=== PATIENT | female | born 1965 | race Caucasian/White ===

== ENCOUNTER 2018-09-17 15:51 | Emergency (ER) | payer BC, SELFPAY ==
[2018-09-17] MEDS ORDERED: Adacel (T-DAP) 0.5 ML SYRINGE ONE (17:19)
--- NOTE | 2018-09-17 17:44 | RAD ---
LEFT ELBOW FOUR VIEWS: 09/17/18 HISTORY: Injury, left elbow pain. FINDINGS/IMPRESSION: No acute fracture or dislocation is seen. Degenerative changes are present. POS: [id number]
== END 2018-09-17 17:53 | disposition home or self-care (01) ==
LOC: ERS 15:51
DX: S51.012A Laceration without foreign body of left elbow, initial encounter (principal); Z71.6 Tobacco abuse counseling; F17.210 Nicotine dependence, cigarettes, uncomplicated; V43.52XA Car driver injured in collision with other type car in traffic accident, initial encounter
CPT/HCPCS: 90471; 90715; 99406

== ENCOUNTER 2020-04-26 03:07 | Inpatient (IN) | payer BC, OTHER, SELFPAY ==
[2020-04-26] MEDS ORDERED: Iopamidol-370 76% 500 ML 1 ML ONE (12:09)
[2020-04-26] MEDS ORDERED: Ondansetron PF 4 MG/2 ML Vial IVP PRN (14:16)
[2020-04-26] MEDS ORDERED: cefTRIAXone\\ROCEPHIN 1 GM in Sodium Chloride 0.9% 100 ML IVPB SCH (15:00)
[2020-04-26 15:20] LABS: SARS-CoV-2 NAA Rapid Test DETECTED (NotDetected)
[2020-04-26] MEDS ORDERED: Azithromycin 500 MG in Sodium Chloride 0.9% 250 ML 250 ML IVPB SCH (16:00)
[2020-04-26] MEDS ORDERED: Succinylcholine 200 MG/10 ml SYRINGE FS ONE (16:44)
[2020-04-26 19:10] LABS: Troponin I 0.061 ng/mL (< 0.028)
[2020-04-26] MEDS ORDERED: Pharmacy to Dose REMDESIVIR IVPB PRN (19:12)
[2020-04-26 19:14] LABS: ALT (SGPT) 27 U/L (8-55); AST (SGOT) 70 U/L (5-34); Albumin 3.3 g/dL (3.5-5.0); Alkaline Phosphatase 222 U/L (40-110); Anion Gap 21 mmol/L (10-20); BUN (Urea Nitrogen) 23 mg/dL (9.8-20.1); Bilirubin, Total 0.6 mg/dL (0.2-1.2); CK (CPK) 143 U/L (29-168); Calc. Creatinine Clearance 116 mL/min (70-130); Calcium 8.9 mg/dL (7.8-10.44); Carbon Dioxide 22 mmol/L (22-29); Chloride 99 mmol/L (98-107); Globulin 5.3 g/dL (2.4-3.5); Glucose 136 mg/dL (70-105); Potassium 3.3 mmol/L (3.5-5.1); Protein, Total 8.6 g/dL (6.0-8.3); Sodium 139 mmol/L (136-145)
[2020-04-26] MEDS: Enoxaparin Sodium 60 MG/0.6 ML SYRINGE SC SCH (19:37)
[2020-04-26 20:12] LABS: Hemoglobin 14.7 g/dL (12.0-16.0); Mean Corpuscular HGB CONC 32.4 g/dL (32.0-36.0); Mean Corpuscular Hemoglobin 29.1 pg (27.0-31.0); Mean Corpuscular Volume 89.8 fL (78.0-98.0); Mean Platelet Volume 10.2 fL (7.4-10.4); Platelet Count 128 thou/uL (130-400); RBC Distribution Width 14.1 % (11.5-14.5); Red Blood Cell (RBC) Count 5.06 mill/uL (4.20-5.40)
[2020-04-26 20:14] LABS: %Lymphocytes 18.4 % (21.0-51.0); %Neutrophils 76.2 % (42.0-75.0)
[2020-04-26 20:15] LABS: #Basophils 0.1 thou/uL (0.0-0.2); #Lymphocytes 1.5 thou/uL (1.20-3.40); #Monocytes 0.4 thou/uL (0.11-0.59); #Neutrophils 6.1 thou/uL (1.40-6.50); %Basophils 0.6 % (0.0-1.0); %Eosinophils 0.1 % (0.0-10.0); %Monocytes 4.7 % (0.0-10.0)
[2020-04-26 20:26] LABS: Bilirubin Negative (Negative); Blood, Urine Negative (Negative); Clarity Clear (Clear); Glucose, Urine (Dipstick) Normal (Negative); Ketone, Urine Negative (Negative); Leukocyte Negative Leu/uL (Negative); Nitrite Negative (Negative); Protein, Urine (Dipstick) 100 mg/dL (Neg-Trace); Squamous Epithelial 0-3 HPF (0-3)
[2020-04-26 20:42] LABS: Bacteria/HPF 1+ HPF (None Seen)
[2020-04-26 20:43] LABS: Unclassified Crystals 2+ HPF (None Seen)
[2020-04-26 20:44] LABS: RBC/HPF 0-3 HPF (0-3)
[2020-04-26 20:45] LABS: WBC/HPF 0-3 HPF (0-3)
[2020-04-26 20:47] LABS: Specific Gravity, Urine 1.047 (1.002-1.036)
[2020-04-26 21:55] LABS: Lactic Acid 1.1 mmol/L (0.5-2.2)
[2020-04-27] MEDS: cefTRIAXone\\ROCEPHIN 1 GM in Sodium Chloride 0.9% 100 ML IVPB SCH (03:06)
[2020-04-27] MEDS: Azithromycin 500 MG in Sodium Chloride 0.9% 250 ML 250 ML IVPB SCH (03:42)
[2020-04-27 05:29] LABS: Band 16 % (5-11); Hemoglobin 12.7 g/dL (12.0-16.0); Lymphocytes 24 % (21-51); MDiff Complete? YES; Mean Corpuscular HGB CONC 32.9 g/dL (32.0-36.0); Mean Corpuscular Hemoglobin 30.2 pg (27.0-31.0); Mean Corpuscular Volume 91.8 fL (78.0-98.0); Mean Platelet Volume 9.8 fL (7.4-10.4); Monocytes 22 % (0-10); Neutrophil 37 % (42-75); Nucleated RBC 1 % (0); Platelet Count 138 thou/uL (130-400); Reactive Lymphocytes 1 % (0-10); Red Blood Cell (RBC) Count 4.21 mill/uL (4.20-5.40); White Blood Cell (WBC) Count 6.4 thou/uL (4.8-10.8)
[2020-04-27 07:39] LABS: Anion Gap 19 mmol/L (10-20); BUN (Urea Nitrogen) 39 mg/dL (9.8-20.1); Calc. Creatinine Clearance 158 mL/min (70-130); Carbon Dioxide 19 mmol/L (22-29); Chloride 105 mmol/L (98-107); Glucose 123 mg/dL (70-105); Potassium 4.5 mmol/L (3.5-5.1); Sodium 138 mmol/L (136-145)
[2020-04-27] MEDS: Enoxaparin Sodium 60 MG/0.6 ML SYRINGE SC SCH ×2 (08:51→22:20)
[2020-04-27] MEDS: Cholecalciferol (Vitamin D3) 400 UNITS TAB PO SCH (08:52)
[2020-04-27] MEDS: Zinc Sulfate 220 MG CAP PO SCH (08:52)
[2020-04-27] MEDS: Dexamethasone 6 MG in Sodium Chloride 0.9% 50 ML IVPB SCH (08:52)
[2020-04-27] MEDS: Ascorbic Acid 500 mg Chewable Tablet PO SCH (08:52)
[2020-04-27] MEDS ORDERED: Colchicine 0.6 MG TAB PO SCH (11:00)
[2020-04-27] MEDS: Colchicine 0.6 MG TAB PO SCH (22:22)
[2020-04-28] MEDS: cefTRIAXone\\ROCEPHIN 1 GM in Sodium Chloride 0.9% 100 ML IVPB SCH (03:19)
[2020-04-28] MEDS: Azithromycin 500 MG in Sodium Chloride 0.9% 250 ML 250 ML IVPB SCH (04:03)
[2020-04-28] MEDS: Enoxaparin Sodium 60 MG/0.6 ML SYRINGE SC SCH ×2 (07:50→19:58)
[2020-04-28] MEDS: Cholecalciferol (Vitamin D3) 400 UNITS TAB PO SCH (07:51)
[2020-04-28] MEDS: Lidocaine 5% Patch TD PRN (07:51)
[2020-04-28] MEDS: Dexamethasone 6 MG in Sodium Chloride 0.9% 50 ML IVPB SCH (07:51)
[2020-04-28] MEDS: Zinc Sulfate 220 MG CAP PO SCH (07:51)
[2020-04-28] MEDS: Ascorbic Acid 500 mg Chewable Tablet PO SCH (07:51)
[2020-04-28] MEDS: Transdermal Patch Removal TOP SCH ×3 (09:44→21:05)
[2020-04-28] MEDS: Colchicine 0.6 MG TAB PO SCH ×2 (09:44→19:58)
[2020-04-28] MEDS: Morphine 2 MG/ML VIAL SLOW IVP PRN ×3 (12:18→22:48)
[2020-04-28] MEDS: Lorazepam 2 MG/ML VIAL SLOW IVP PRN ×3 (12:19→20:04)
[2020-04-28] MEDS: Acetaminophen 325 MG TAB PO PRN (15:46)
[2020-04-28 23:21] LABS: CO2 Tension 33.3 mmHg (35.0-45.0); Calcium, Ionized (arterial) 1.06 mmol/L (1.12-1.30); Carboxyhemoglobin (COHb) 1.1 gm% (0.0-3.0); Hemoglobin (Hb) 12.8 g/dL (12.0-16.0); Potassium - ABG Lab 3.92 mmol/L (3.70-5.30); pH, Arterial 7.48 (7.35-7.45)
[2020-04-28 23:24] LABS: O2 Tension (PaO2), arterial 54.4 mmHg (80.0-100.0)
[2020-04-28 23:25] LABS: ALV-art Gradient 317.515 mmHg (0-20); Puncture Site RRA
[2020-04-28] MEDS: Propofol 1,000 MG/100 ML VIAL IV PRN (23:45)
[2020-04-28] MEDS ORDERED: Propofol 1,000 MG/100 ML VIAL IV ONE (23:45)
[2020-04-28] MEDS ORDERED: Lorazepam 2 MG/ML VIAL ONE (23:52)
[2020-04-28] MEDS ORDERED: Morphine 2 MG/ML VIAL ONE (23:52)
[2020-04-28] MEDS ORDERED: Fentanyl CADD 100 ML ONE (23:58)
[2020-04-29] MEDS ORDERED: Vecuronium 10 MG VIAL ONE (00:07)
[2020-04-29] MEDS ORDERED: Propofol BOLUS 1,000 MG/100 ML VIAL IV PRN (00:15)
[2020-04-29] MEDS ORDERED: DISCONTINUE PREVIOUS NARCOTIC PAIN MEDICATIONS AND BENZODIAZEPINES FS SCH (00:15)
[2020-04-29] MEDS ORDERED: Fentanyl BOLUS 250 ML IVPB PRN (00:15)
[2020-04-29] MEDS ORDERED: Metoprolol Tartrate 5 MG/5 ML VIAL ONE (00:32)
[2020-04-29 00:36] LABS: Band 7 % (5-11); Hemoglobin 12.2 g/dL (12.0-16.0); Lymphocytes 15 % (21-51); MDiff Complete? YES; Mean Corpuscular HGB CONC 33.3 g/dL (32.0-36.0); Mean Corpuscular Hemoglobin 29.5 pg (27.0-31.0); Mean Corpuscular Volume 88.6 fL (78.0-98.0); Mean Platelet Volume 9.3 fL (7.4-10.4); Monocytes 13 % (0-10); Neutrophil 65 % (42-75); Platelet Count 211 thou/uL (130-400); RBC Distribution Width 14.3 % (11.5-14.5); Red Blood Cell (RBC) Count 4.15 mill/uL (4.20-5.40); White Blood Cell (WBC) Count 11.5 thou/uL (4.8-10.8)
[2020-04-29 00:40] LABS: Actual Bicarbonate (HCO3a) 23.4 mEq/L (22-28); Base Excess (BEa) -2.8 mEq/L (-2.0 to +3.0); CO2 Tension 46.2 mmHg (35.0-45.0); Calcium, Ionized (arterial) 1.05 mmol/L (1.12-1.30); Carboxyhemoglobin (COHb) 1.3 gm% (0.0-3.0); O2 Tension (PaO2), arterial 66.8 mmHg (80.0-100.0); Potassium - ABG Lab 3.75 mmol/L (3.70-5.30); pH, Arterial 7.32 (7.35-7.45)
[2020-04-29 01:01] LABS: ALT (SGPT) 23 U/L (8-55); AST (SGOT) 65 U/L (5-34); Albumin 2.9 g/dL (3.5-5.0); Alkaline Phosphatase 179 U/L (40-110); Anion Gap 15 mmol/L (10-20); BUN (Urea Nitrogen) 16 mg/dL (9.8-20.1); Bilirubin, Total 0.7 mg/dL (0.2-1.2); Calc. Creatinine Clearance 177 mL/min (70-130); Calcium 7.8 mg/dL (7.8-10.44); Carbon Dioxide 24 mmol/L (22-29); Chloride 106 mmol/L (98-107); Globulin 4.6 g/dL (2.4-3.5); Glucose 145 mg/dL (70-105); Potassium 3.9 mmol/L (3.5-5.1); Protein, Total 7.5 g/dL (6.0-8.3); Sodium 141 mmol/L (136-145)
[2020-04-29] MEDS: Propofol 1,000 MG/100 ML VIAL IV PRN ×5 (02:20→22:51)
[2020-04-29] MEDS: Vecuronium 10 MG VIAL IVP PRN ×8 (02:58→22:40)
[2020-04-29] MEDS: cefTRIAXone\\ROCEPHIN 1 GM in Sodium Chloride 0.9% 100 ML IVPB SCH (03:40)
[2020-04-29] MEDS: Azithromycin 500 MG in Sodium Chloride 0.9% 250 ML 250 ML IVPB SCH (04:41)
[2020-04-29 05:21] LABS: Anion Gap 15 mmol/L (10-20); BUN (Urea Nitrogen) 18 mg/dL (9.8-20.1); Calc. Creatinine Clearance 148 mL/min (70-130); Calcium 7.6 mg/dL (7.8-10.44); Carbon Dioxide 24 mmol/L (22-29); Chloride 105 mmol/L (98-107); Glucose 93 mg/dL (70-105); Potassium 4.5 mmol/L (3.5-5.1); Sodium 139 mmol/L (136-145)
[2020-04-29 05:49] LABS: Band 6 % (5-11); Hemoglobin 11.5 g/dL (12.0-16.0); Lymphocytes 25 % (21-51); MDiff Complete? YES; Mean Corpuscular HGB CONC 31.2 g/dL (32.0-36.0); Mean Corpuscular Hemoglobin 27.8 pg (27.0-31.0); Mean Corpuscular Volume 89.3 fL (78.0-98.0); Mean Platelet Volume 9.3 fL (7.4-10.4); Monocytes 21 % (0-10); Myelocyte 2 % (0-0); Neutrophil 46 % (42-75); Platelet Count 194 thou/uL (130-400); Red Blood Cell (RBC) Count 4.12 mill/uL (4.20-5.40); White Blood Cell (WBC) Count 11.2 thou/uL (4.8-10.8)
[2020-04-29] MEDS: Cholecalciferol (Vitamin D3) 400 UNITS TAB PO SCH (09:05)
[2020-04-29] MEDS: Ascorbic Acid 500 mg Chewable Tablet PO SCH (09:05)
[2020-04-29] MEDS: Zinc Sulfate 220 MG CAP PO SCH (09:05)
[2020-04-29] MEDS: Colchicine 0.6 MG TAB PO SCH ×2 (09:05→19:50)
[2020-04-29] MEDS: Enoxaparin Sodium 60 MG/0.6 ML SYRINGE SC SCH ×2 (09:05→19:47)
[2020-04-29] MEDS: Transdermal Patch Removal TOP SCH ×3 (09:06→21:48)
[2020-04-29] MEDS: Dexamethasone 6 MG in Sodium Chloride 0.9% 50 ML IVPB SCH (09:11)
[2020-04-29] MEDS ORDERED: Labetalol HCl 100 MG/20 ML VIAL SLOW IVP PRN (09:35)
[2020-04-29] MEDS ORDERED: Labetalol HCl 100 MG/20 ML VIAL ONE (09:45)
[2020-04-29] MEDS: Lactated Ringer's 1,000 ML IV SCH (10:15)
[2020-04-29] MEDS: Lorazepam 2 MG/ML VIAL SLOW IVP PRN ×3 (12:28→22:51)
[2020-04-29] MEDS ORDERED: Fentanyl CADD 100 ML ONE (16:39)
[2020-04-29] MEDS: Fentanyl CADD 100 ML IV SCH (16:44)
[2020-04-30] MEDS: Lactated Ringer's 1,000 ML IV SCH ×2 (01:52→16:38)
[2020-04-30] MEDS: cefTRIAXone\\ROCEPHIN 1 GM in Sodium Chloride 0.9% 100 ML IVPB SCH (03:00)
[2020-04-30] MEDS: Azithromycin 500 MG in Sodium Chloride 0.9% 250 ML 250 ML IVPB SCH (03:56)
[2020-04-30] MEDS: Propofol 1,000 MG/100 ML VIAL IV PRN ×4 (05:29→20:57)
[2020-04-30 05:48] LABS: Anion Gap 14 mmol/L (10-20); BUN (Urea Nitrogen) 24 mg/dL (9.8-20.1); Calc. Creatinine Clearance 157 mL/min (70-130); Calcium 7.8 mg/dL (7.8-10.44); Carbon Dioxide 24 mmol/L (22-29); Chloride 106 mmol/L (98-107); Glucose 105 mg/dL (70-105); Potassium 4.7 mmol/L (3.5-5.1); Sodium 139 mmol/L (136-145)
[2020-04-30 06:02] LABS: Hemoglobin 10.3 g/dL (12.0-16.0); Hypochromia SLIGHT = 6-15 cells (100X) (0-5/hpf); Lymphocytes 29 % (21-51); MDiff Complete? YES; Mean Corpuscular HGB CONC 32.1 g/dL (32.0-36.0); Mean Corpuscular Hemoglobin 29.2 pg (27.0-31.0); Mean Corpuscular Volume 90.9 fL (78.0-98.0); Mean Platelet Volume 9.4 fL (7.4-10.4); Monocytes 14 % (0-10); Neutrophil 46 % (42-75); Platelet Count 188 thou/uL (130-400); Platelet Morphology Comment Appears Adequate; RBC Distribution Width 13.8 % (11.5-14.5); Reactive Lymphocytes 11 % (0-10); Red Blood Cell (RBC) Count 3.54 mill/uL (4.20-5.40); White Blood Cell (WBC) Count 7.3 thou/uL (4.8-10.8)
[2020-04-30] MEDS: Cholecalciferol (Vitamin D3) 400 UNITS TAB PO SCH (08:19)
[2020-04-30] MEDS: Zinc Sulfate 220 MG CAP PO SCH (08:19)
[2020-04-30] MEDS: Dexamethasone 6 MG in Sodium Chloride 0.9% 50 ML IVPB SCH (08:19)
[2020-04-30] MEDS: Ascorbic Acid 500 mg Chewable Tablet PO SCH (08:20)
[2020-04-30] MEDS: Fentanyl CADD 100 ML ONE (08:20)
[2020-04-30] MEDS: Lorazepam 2 MG/ML VIAL SLOW IVP PRN (08:20)
[2020-04-30] MEDS: Colchicine 0.6 MG TAB PO SCH ×2 (08:21→21:45)
[2020-04-30] MEDS: Enoxaparin Sodium 60 MG/0.6 ML SYRINGE SC SCH ×2 (08:21→20:57)
[2020-04-30 08:29] LABS: Actual Bicarbonate (HCO3a) 22.6 mEq/L (22-28); Analyzer IN Cardio OR; Base Excess (BEa) -3.4 mEq/L (-2.0 to +3.0); CO2 Tension 44.6 mmHg (35.0-45.0); Calcium, Ionized (arterial) 1.08 mmol/L (1.12-1.30); Carboxyhemoglobin (COHb) 1.3 gm% (0.0-3.0); Hemoglobin (Hb) 10.5 g/dL (12.0-16.0); O2 Tension (PaO2), arterial 151.6 mmHg (80.0-100.0); Potassium - ABG Lab 4.54 mmol/L (3.70-5.30); pH, Arterial 7.32 (7.35-7.45)
[2020-04-30] MEDS: Transdermal Patch Removal TOP SCH ×2 (10:08→20:06)
[2020-04-30 10:59] LABS: Puncture Site RRA
[2020-04-30] MEDS: Vecuronium 10 MG VIAL IVP PRN (12:09)
[2020-05-01] MEDS ORDERED: Fentanyl CADD 100 ML ONE ×2 (00:20→14:59)
[2020-05-01] MEDS: Fentanyl CADD 100 ML ONE (00:27)
[2020-05-01] MEDS: Fentanyl CADD 100 ML IV SCH (00:27)
[2020-05-01] MEDS: Propofol 1,000 MG/100 ML VIAL IV PRN ×6 (00:57→21:55)
[2020-05-01] MEDS: Azithromycin 500 MG in Sodium Chloride 0.9% 250 ML 250 ML IVPB SCH (04:57)
[2020-05-01] MEDS: cefTRIAXone\\ROCEPHIN 1 GM in Sodium Chloride 0.9% 100 ML IVPB SCH (04:57)
[2020-05-01 05:52] LABS: Anion Gap 12 mmol/L (10-20); BUN (Urea Nitrogen) 20 mg/dL (9.8-20.1); Calc. Creatinine Clearance 190 mL/min (70-130); Calcium 7.9 mg/dL (7.8-10.44); Carbon Dioxide 28 mmol/L (22-29); Chloride 107 mmol/L (98-107); Glucose 98 mg/dL (70-105); Potassium 4.6 mmol/L (3.5-5.1); Sodium 142 mmol/L (136-145)
[2020-05-01 06:03] LABS: Hemoglobin 9.6 g/dL (12.0-16.0); Lymphocytes 21 % (21-51); MDiff Complete? YES; Mean Corpuscular HGB CONC 32.3 g/dL (32.0-36.0); Mean Corpuscular Hemoglobin 29.2 pg (27.0-31.0); Mean Corpuscular Volume 90.1 fL (78.0-98.0); Mean Platelet Volume 9.3 fL (7.4-10.4); Metamyelocyte 2 % (0-0); Monocytes 8 % (0-10); Myelocyte 3 % (0-0); Neutrophil 66 % (42-75); Platelet Count 243 thou/uL (130-400); Platelet Morphology Comment Appears Adequate; RBC Distribution Width 13.7 % (11.5-14.5); RBC Morphology Normal; Red Blood Cell (RBC) Count 3.29 mill/uL (4.20-5.40)
[2020-05-01 07:20] LABS: Actual Bicarbonate (HCO3a) 25.9 mEq/L (22-28); Base Excess (BEa) 1.2 mEq/L (-2.0 to +3.0); CO2 Tension 41.2 mmHg (35.0-45.0); Calcium, Ionized (arterial) 1.15 mmol/L (1.12-1.30); Carboxyhemoglobin (COHb) 0.9 gm% (0.0-3.0); Hemoglobin (Hb) 10.8 g/dL (12.0-16.0); Potassium - ABG Lab 4.55 mmol/L (3.70-5.30); pH, Arterial 7.42 (7.35-7.45)
[2020-05-01] MEDS: Transdermal Patch Removal TOP SCH ×2 (07:26→21:52)
[2020-05-01] MEDS: Ascorbic Acid 500 mg Chewable Tablet PO SCH (08:02)
[2020-05-01] MEDS: Zinc Sulfate 220 MG CAP PO SCH (08:02)
[2020-05-01] MEDS: Colchicine 0.6 MG TAB PO SCH ×2 (08:02→21:52)
[2020-05-01] MEDS: Cholecalciferol (Vitamin D3) 400 UNITS TAB PO SCH (08:02)
[2020-05-01 08:03] LABS: O2 Tension (PaO2), arterial 80.3 mmHg (80.0-100.0); Puncture Site RRA
[2020-05-01] MEDS: Enoxaparin Sodium 60 MG/0.6 ML SYRINGE SC SCH ×2 (08:03→20:26)
[2020-05-01] MEDS: Dexamethasone 6 MG in Sodium Chloride 0.9% 50 ML IVPB SCH (09:12)
[2020-05-01] MEDS ORDERED: Sterile Water 0 ML ONE (11:40)
[2020-05-01] MEDS: Vecuronium 10 MG VIAL IVP PRN ×3 (12:00→17:55)
[2020-05-01] MEDS: Lorazepam 2 MG/ML VIAL SLOW IVP PRN ×4 (12:00→20:26)
[2020-05-01] MEDS: Lactated Ringer's 1,000 ML IV SCH (12:35)
[2020-05-02] MEDS: Lorazepam 2 MG/ML VIAL SLOW IVP PRN (00:36)
[2020-05-02] MEDS: Propofol 1,000 MG/100 ML VIAL IV PRN ×2 (02:38→21:03)
[2020-05-02] MEDS: Lactated Ringer's 1,000 ML IV SCH ×2 (04:27→21:04)
[2020-05-02] MEDS: cefTRIAXone\\ROCEPHIN 1 GM in Sodium Chloride 0.9% 100 ML IVPB SCH (04:27)
[2020-05-02] MEDS: Azithromycin 500 MG in Sodium Chloride 0.9% 250 ML 250 ML IVPB SCH (05:13)
[2020-05-02 05:14] LABS: Band 2 % (5-11); Hemoglobin 9.5 g/dL (12.0-16.0); Hypochromia SLIGHT = 6-15 cells (100X) (0-5/hpf); Lymphocytes 13 % (21-51); MDiff Complete? YES; Mean Corpuscular HGB CONC 33.1 g/dL (32.0-36.0); Mean Corpuscular Volume 90.7 fL (78.0-98.0); Mean Platelet Volume 9.2 fL (7.4-10.4); Monocytes 21 % (0-10); Neutrophil 64 % (42-75); Platelet Count 278 thou/uL (130-400); Platelet Morphology Comment Appears Adequate; RBC Distribution Width 13.8 % (11.5-14.5); Red Blood Cell (RBC) Count 3.15 mill/uL (4.20-5.40)
[2020-05-02 05:16] LABS: Anion Gap 13 mmol/L (10-20); BUN (Urea Nitrogen) 20 mg/dL (9.8-20.1); Calc. Creatinine Clearance 192 mL/min (70-130); Calcium 8.2 mg/dL (7.8-10.44); Carbon Dioxide 27 mmol/L (22-29); Chloride 103 mmol/L (98-107); Glucose 87 mg/dL (70-105); Potassium 4.6 mmol/L (3.5-5.1); Sodium 138 mmol/L (136-145)
[2020-05-02] MEDS ORDERED: Fentanyl CADD 100 ML ONE (07:16)
[2020-05-02] MEDS: Enoxaparin Sodium 60 MG/0.6 ML SYRINGE SC SCH ×2 (08:17→21:03)
[2020-05-02] MEDS: Transdermal Patch Removal TOP SCH ×2 (08:18→21:04)
[2020-05-02] MEDS: Ascorbic Acid 500 mg Chewable Tablet PO SCH (08:18)
[2020-05-02] MEDS: Colchicine 0.6 MG TAB PO SCH ×2 (08:18→21:04)
[2020-05-02] MEDS: Cholecalciferol (Vitamin D3) 400 UNITS TAB PO SCH (08:18)
[2020-05-02] MEDS: Zinc Sulfate 220 MG CAP PO SCH (08:18)
[2020-05-02] MEDS: Dexamethasone Sod Phosphate 6 MG in Sodium Chloride 0.9% 50 ML IVPB SCH (09:01)
[2020-05-03] MEDS: Propofol 1,000 MG/100 ML VIAL IV PRN ×5 (01:05→23:24)
[2020-05-03] MEDS ORDERED: Fentanyl CADD 100 ML ONE ×3 (03:09→22:17)
[2020-05-03] MEDS: cefTRIAXone\\ROCEPHIN 1 GM in Sodium Chloride 0.9% 100 ML IVPB SCH (03:28)
[2020-05-03 04:26] LABS: #Lymphocytes 0.7 thou/uL (1.20-3.40); #Monocytes 0.3 thou/uL (0.11-0.59); #Neutrophils 2.1 thou/uL (1.40-6.50); %Basophils 1.3 % (0.0-1.0); %Eosinophils 0.4 % (0.0-10.0); %Lymphocytes 21.5 % (21.0-51.0); %Monocytes 9.1 % (0.0-10.0); %Neutrophils 67.6 % (42.0-75.0); Hemoglobin 9.3 g/dL (12.0-16.0); Mean Corpuscular HGB CONC 32.6 g/dL (32.0-36.0); Mean Corpuscular Hemoglobin 29.1 pg (27.0-31.0); Mean Platelet Volume 9.3 fL (7.4-10.4); Platelet Count 311 thou/uL (130-400); RBC Distribution Width 13.9 % (11.5-14.5); White Blood Cell (WBC) Count 3.2 thou/uL (4.8-10.8)
[2020-05-03] MEDS: Azithromycin 500 MG in Sodium Chloride 0.9% 250 ML 250 ML IVPB SCH (04:45)
[2020-05-03] MEDS: Lorazepam 2 MG/ML VIAL SLOW IVP PRN (04:45)
[2020-05-03 04:48] LABS: Anion Gap 12 mmol/L (10-20); BUN (Urea Nitrogen) 22 mg/dL (9.8-20.1); Calc. Creatinine Clearance 197 mL/min (70-130); Calcium 8.1 mg/dL (7.8-10.44); Carbon Dioxide 30 mmol/L (22-29); Chloride 103 mmol/L (98-107); Glucose 109 mg/dL (70-105); Potassium 4.2 mmol/L (3.5-5.1); Sodium 141 mmol/L (136-145)
[2020-05-03] MEDS: Dexamethasone Sod Phosphate 6 MG in Sodium Chloride 0.9% 50 ML IVPB SCH (08:27)
[2020-05-03] MEDS: Transdermal Patch Removal TOP SCH ×2 (08:29→20:16)
[2020-05-03] MEDS: Cholecalciferol (Vitamin D3) 400 UNITS TAB PO SCH (08:29)
[2020-05-03] MEDS: Ascorbic Acid 500 mg Chewable Tablet PO SCH (08:29)
[2020-05-03] MEDS: Colchicine 0.6 MG TAB PO SCH ×2 (08:29→20:40)
[2020-05-03] MEDS: Zinc Sulfate 220 MG CAP PO SCH (08:29)
[2020-05-03 08:42] LABS: Actual Bicarbonate (HCO3a) 29.9 mEq/L (22-28); Base Excess (BEa) 5.8 mEq/L (-2.0 to +3.0); CO2 Tension 41.4 mmHg (35.0-45.0); Calcium, Ionized (arterial) 1.14 mmol/L (1.12-1.30); Carboxyhemoglobin (COHb) 0.6 gm% (0.0-3.0); Hemoglobin (Hb) 9.9 g/dL (12.0-16.0); O2 Tension (PaO2), arterial 60.4 mmHg (80.0-100.0); pH, Arterial 7.48 (7.35-7.45)
[2020-05-03 08:45] LABS: Puncture Site RRA
[2020-05-03] MEDS: Enoxaparin Sodium 60 MG/0.6 ML SYRINGE SC SCH ×2 (09:36→20:40)
[2020-05-03] MEDS: Fentanyl CADD 100 ML IV SCH (22:20)
[2020-05-04] MEDS: cefTRIAXone\\ROCEPHIN 1 GM in Sodium Chloride 0.9% 100 ML IVPB SCH (02:49)
[2020-05-04] MEDS: Lorazepam 2 MG/ML VIAL SLOW IVP PRN ×2 (02:50→11:41)
[2020-05-04] MEDS: Propofol 1,000 MG/100 ML VIAL IV PRN ×7 (03:33→23:37)
[2020-05-04] MEDS: Azithromycin 500 MG in Sodium Chloride 0.9% 250 ML 250 ML IVPB SCH (04:04)
[2020-05-04 07:00] LABS: Hemoglobin 9.6 g/dL (12.0-16.0); Mean Corpuscular HGB CONC 33.2 g/dL (32.0-36.0); Mean Corpuscular Hemoglobin 30.4 pg (27.0-31.0); Mean Corpuscular Volume 91.3 fL (78.0-98.0); Mean Platelet Volume 9.5 fL (7.4-10.4); Platelet Count 282 thou/uL (130-400); RBC Distribution Width 14.1 % (11.5-14.5); Red Blood Cell (RBC) Count 3.17 mill/uL (4.20-5.40); White Blood Cell (WBC) Count 6.4 thou/uL (4.8-10.8)
[2020-05-04 07:16] LABS: Anion Gap 10 mmol/L (10-20); BUN (Urea Nitrogen) 26 mg/dL (9.8-20.1); Calc. Creatinine Clearance 195 mL/min (70-130); Calcium 7.9 mg/dL (7.8-10.44); Carbon Dioxide 29 mmol/L (22-29); Chloride 107 mmol/L (98-107); Glucose 93 mg/dL (70-105); Potassium 3.4 mmol/L (3.5-5.1); Sodium 143 mmol/L (136-145)
[2020-05-04 07:51] LABS: Base Excess (BEa) 4.8 mEq/L (-2.0 to +3.0); CO2 Tension 41.6 mmHg (35.0-45.0); Calcium, Ionized (arterial) 1.15 mmol/L (1.12-1.30); Carboxyhemoglobin (COHb) 0.7 gm% (0.0-3.0); Potassium - ABG Lab 3.45 mmol/L (3.70-5.30); pH, Arterial 7.46 (7.35-7.45)
[2020-05-04 07:57] LABS: Puncture Site RRA
[2020-05-04] MEDS: Ascorbic Acid 500 mg Chewable Tablet PO SCH (08:10)
[2020-05-04] MEDS: Cholecalciferol (Vitamin D3) 400 UNITS TAB PO SCH (08:10)
[2020-05-04] MEDS: Enoxaparin Sodium 60 MG/0.6 ML SYRINGE SC SCH ×2 (08:10→20:22)
[2020-05-04] MEDS: Zinc Sulfate 220 MG CAP PO SCH (08:11)
[2020-05-04] MEDS: Colchicine 0.6 MG TAB PO SCH ×2 (08:20→20:22)
[2020-05-04 09:15] LABS: Band 10 % (5-11); Lymphocytes 24 % (21-51); MDiff Complete? YES; Metamyelocyte 1 % (0-0); Monocytes 15 % (0-10); Myelocyte 1 % (0-0); Neutrophil 45 % (42-75); Platelet Morphology Comment Appears Adequate; Polychromasia SLIGHT = 2-3 cells (100X) (0-2/hpf); Reactive Lymphocytes 4 % (0-10)
[2020-05-04] MEDS: Dexamethasone Sod Phosphate 6 MG in Sodium Chloride 0.9% 50 ML IVPB SCH (10:00)
[2020-05-04] MEDS: Lactated Ringer's 1,000 ML IV SCH (10:59)
[2020-05-04] MEDS: Transdermal Patch Removal TOP SCH ×2 (11:00→19:38)
[2020-05-04] MEDS: Vecuronium 10 MG VIAL IVP PRN (11:40)
[2020-05-04] MEDS ORDERED: Fentanyl CADD 100 ML ONE (14:37)
[2020-05-04] MEDS: Fentanyl CADD 100 ML IV SCH (14:39)
[2020-05-05] MEDS ORDERED: Fentanyl CADD 100 ML ONE ×2 (01:57→15:59)
[2020-05-05] MEDS: Propofol 1,000 MG/100 ML VIAL IV PRN ×7 (02:15→21:14)
[2020-05-05] MEDS: Lactated Ringer's 1,000 ML IV SCH ×3 (02:31→19:36)
[2020-05-05] MEDS: Fentanyl CADD 100 ML IV SCH (02:32)
[2020-05-05 04:32] LABS: Hemoglobin 8.9 g/dL (12.0-16.0); Mean Corpuscular HGB CONC 33.5 g/dL (32.0-36.0); Mean Corpuscular Hemoglobin 30.1 pg (27.0-31.0); Mean Platelet Volume 9.7 fL (7.4-10.4); Platelet Count 291 thou/uL (130-400); RBC Distribution Width 14.5 % (11.5-14.5); Red Blood Cell (RBC) Count 2.95 mill/uL (4.20-5.40); White Blood Cell (WBC) Count 2.9 thou/uL (4.8-10.8)
[2020-05-05 05:17] LABS: Band 3 % (5-11); Lymphocytes 39 % (21-51); MDiff Complete? YES; Metamyelocyte 2 % (0-0); Monocytes 13 % (0-10); Neutrophil 43 % (42-75); Platelet Morphology Comment Appears Adequate
[2020-05-05 05:41] LABS: Anion Gap 11 mmol/L (10-20); BUN (Urea Nitrogen) 23 mg/dL (9.8-20.1); Calc. Creatinine Clearance 205 mL/min (70-130); Calcium 7.8 mg/dL (7.8-10.44); Carbon Dioxide 29 mmol/L (22-29); Chloride 106 mmol/L (98-107); Glucose 90 mg/dL (70-105); Potassium 3.8 mmol/L (3.5-5.1); Sodium 142 mmol/L (136-145)
[2020-05-05 08:01] LABS: Actual Bicarbonate (HCO3a) 29.7 mEq/L (22-28); Base Excess (BEa) 5.1 mEq/L (-2.0 to +3.0); CO2 Tension 43.8 mmHg (35.0-45.0); Calcium, Ionized (arterial) 1.16 mmol/L (1.12-1.30); Carboxyhemoglobin (COHb) 1.1 gm% (0.0-3.0); Hemoglobin (Hb) 9.8 g/dL (12.0-16.0); Potassium - ABG Lab 3.48 mmol/L (3.70-5.30); pH, Arterial 7.45 (7.35-7.45)
[2020-05-05 08:07] LABS: O2 Tension (PaO2), arterial 53.2 mmHg (80.0-100.0)
[2020-05-05 08:08] LABS: Puncture Site RRA
[2020-05-05] MEDS: Enoxaparin Sodium 60 MG/0.6 ML SYRINGE SC SCH ×2 (08:31→20:17)
[2020-05-05] MEDS: Cholecalciferol (Vitamin D3) 400 UNITS TAB PO SCH (08:31)
[2020-05-05] MEDS: Ascorbic Acid 500 mg Chewable Tablet PO SCH (08:31)
[2020-05-05] MEDS: Zinc Sulfate 220 MG CAP PO SCH (08:31)
[2020-05-05] MEDS: Pantoprazole 40 MG GRANULES PACKET PER TUBE SCH (08:32)
[2020-05-05] MEDS: Dexamethasone Sod Phosphate 6 MG in Sodium Chloride 0.9% 50 ML IVPB SCH (08:40)
[2020-05-05] MEDS: Colchicine 0.6 MG TAB PO SCH ×2 (08:40→20:17)
[2020-05-05] MEDS: Transdermal Patch Removal TOP SCH ×2 (10:00→20:37)
[2020-05-06] MEDS: Propofol 1,000 MG/100 ML VIAL IV PRN ×8 (00:48→22:59)
[2020-05-06] MEDS: Morphine 2 MG/ML VIAL SLOW IVP PRN ×2 (02:48→20:17)
[2020-05-06] MEDS: Lorazepam 2 MG/ML VIAL SLOW IVP PRN ×2 (03:07→20:26)
[2020-05-06 04:54] LABS: Anion Gap 9 mmol/L (10-20); BUN (Urea Nitrogen) 22 mg/dL (9.8-20.1); CRP (Inflammatory) 12.27 mg/dL (= or < 0.5); Calc. Creatinine Clearance 210 mL/min (70-130); Calcium 8.3 mg/dL (7.8-10.44); Carbon Dioxide 30 mmol/L (22-29); Chloride 107 mmol/L (98-107); Glucose 90 mg/dL (70-105); Potassium 3.8 mmol/L (3.5-5.1); Sodium 142 mmol/L (136-145)
[2020-05-06] MEDS ORDERED: Fentanyl CADD 100 ML ONE ×2 (06:25→22:10)
[2020-05-06] MEDS: Fentanyl CADD 100 ML IV SCH ×2 (06:27→22:26)
[2020-05-06] MEDS: Lactated Ringer's 1,000 ML IV SCH (06:30)
[2020-05-06 07:04] LABS: Mean Corpuscular HGB CONC 33.1 g/dL (32.0-36.0); Mean Corpuscular Hemoglobin 30.6 pg (27.0-31.0); Mean Corpuscular Volume 92.4 fL (78.0-98.0); Mean Platelet Volume 9.6 fL (7.4-10.4); Platelet Count 261 thou/uL (130-400); RBC Distribution Width 14.8 % (11.5-14.5); Red Blood Cell (RBC) Count 2.94 mill/uL (4.20-5.40)
[2020-05-06 07:11] LABS: Actual Bicarbonate (HCO3a) 30.5 mEq/L (22-28); Base Excess (BEa) 5.3 mEq/L (-2.0 to +3.0); CO2 Tension 47.7 mmHg (35.0-45.0); Calcium, Ionized (arterial) 1.16 mmol/L (1.12-1.30); Carboxyhemoglobin (COHb) 0.7 gm% (0.0-3.0); Hemoglobin (Hb) 9.7 g/dL (12.0-16.0); pH, Arterial 7.42 (7.35-7.45)
[2020-05-06 07:14] LABS: ALV-art Gradient 239.175 mmHg (0-20); O2 Tension (PaO2), arterial 57.7 mmHg (80.0-100.0); Puncture Site LRA
[2020-05-06 08:25] LABS: Band 8 % (5-11); Eosinophils 1 % (0-10); Lymphocytes 30 % (21-51); MDiff Complete? YES; Monocytes 14 % (0-10); Myelocyte 1 % (0-0); Neutrophil 44 % (42-75); Platelet Morphology Comment Appears Adequate; Polychromasia SLIGHT = 2-3 cells (100X) (0-2/hpf); Reactive Lymphocytes 1 % (0-10)
[2020-05-06] MEDS: Enoxaparin Sodium 60 MG/0.6 ML SYRINGE SC SCH ×2 (10:00→20:17)
[2020-05-06] MEDS: Transdermal Patch Removal TOP SCH ×2 (10:00→21:18)
[2020-05-06] MEDS: Pantoprazole 40 MG GRANULES PACKET PER TUBE SCH (10:00)
[2020-05-06] MEDS: Ascorbic Acid 500 mg Chewable Tablet PO SCH (10:00)
[2020-05-06] MEDS: Zinc Sulfate 220 MG CAP PO SCH (10:00)
[2020-05-06] MEDS: Cholecalciferol (Vitamin D3) 400 UNITS TAB PO SCH (10:00)
[2020-05-06] MEDS: Colchicine 0.6 MG TAB PO SCH ×2 (10:00→21:18)
[2020-05-06] MEDS: Dexamethasone Sod Phosphate 6 MG in Sodium Chloride 0.9% 50 ML IVPB SCH (10:30)
[2020-05-07] MEDS: Propofol 1,000 MG/100 ML VIAL IV PRN ×7 (01:54→22:14)
[2020-05-07] MEDS: Lactated Ringer's 1,000 ML IV SCH ×2 (01:54→19:17)
[2020-05-07 07:04] LABS: Base Excess (BEa) 4.7 mEq/L (-2.0 to +3.0); CO2 Tension 47.8 mmHg (35.0-45.0); Calcium, Ionized (arterial) 1.17 mmol/L (1.12-1.30); Potassium - ABG Lab 3.59 mmol/L (3.70-5.30); pH, Arterial 7.42 (7.35-7.45)
[2020-05-07 08:37] LABS: Puncture Site LRA
[2020-05-07] MEDS: Cholecalciferol (Vitamin D3) 400 UNITS TAB PO SCH (08:49)
[2020-05-07] MEDS: Pantoprazole 40 MG GRANULES PACKET PER TUBE SCH (08:50)
[2020-05-07] MEDS: Zinc Sulfate 220 MG CAP PO SCH (08:50)
[2020-05-07] MEDS: Ascorbic Acid 500 mg Chewable Tablet PO SCH (08:50)
[2020-05-07] MEDS: Enoxaparin Sodium 60 MG/0.6 ML SYRINGE SC SCH ×2 (08:50→20:12)
[2020-05-07] MEDS: Transdermal Patch Removal TOP SCH ×2 (08:50→20:13)
[2020-05-07] MEDS: Colchicine 0.6 MG TAB PO SCH (08:50)
[2020-05-07] MEDS ORDERED: methylPREDNISolone Sod Succ 40 MG VIAL IVP SCH (09:00)
[2020-05-07] MEDS ORDERED: Ivermectin 3 MG TAB PO SCH (09:00)
[2020-05-07] MEDS: methylPREDNISolone Sod Succ 1 GM in Sodium Chloride 0.9% 250 ML 250 ML IVPB SCH (10:27)
[2020-05-07] MEDS ORDERED: Fentanyl CADD 100 ML ONE (13:41)
[2020-05-07 13:51] LABS: #Lymphocytes 0.7 thou/uL (1.20-3.40); #Monocytes 0.4 thou/uL (0.11-0.59); #Neutrophils 1.9 thou/uL (1.40-6.50); %Basophils 0.8 % (0.0-1.0); %Eosinophils 0.5 % (0.0-10.0); %Lymphocytes 23.5 % (21.0-51.0); %Monocytes 12.9 % (0.0-10.0); %Neutrophils 62.4 % (42.0-75.0); Hemoglobin 9.3 g/dL (12.0-16.0); Mean Corpuscular HGB CONC 32.2 g/dL (32.0-36.0); Mean Corpuscular Volume 90.1 fL (78.0-98.0); Mean Platelet Volume 9.5 fL (7.4-10.4); Platelet Count 281 thou/uL (130-400); RBC Distribution Width 15.3 % (11.5-14.5); Red Blood Cell (RBC) Count 3.19 mill/uL (4.20-5.40); White Blood Cell (WBC) Count 3.1 thou/uL (4.8-10.8)
[2020-05-07] MEDS: Fentanyl CADD 100 ML IV SCH (13:53)
[2020-05-07] MEDS: Fluconazole In NaCl,Iso-Osm 100 MG in Admixture Fee 1 EACH IVPB SCH (20:09)
[2020-05-07] MEDS: Nystatin Powder 15 GM BOT TOP PRN (20:10)
[2020-05-07] MEDS: Colchicine 0.3 MG TAB PO SCH (20:10)
[2020-05-07] MEDS ORDERED: Fluconazole In NaCl,Iso-Osm 100 MG in Premix Bag 1 BAG IVPB SCH (21:00)
[2020-05-08] MEDS: Propofol 1,000 MG/100 ML VIAL IV PRN ×7 (01:42→23:50)
[2020-05-08] MEDS ORDERED: Fentanyl CADD 100 ML ONE (03:50)
[2020-05-08] MEDS: Fentanyl CADD 100 ML IV SCH ×2 (03:53→18:56)
[2020-05-08 08:02] LABS: Actual Bicarbonate (HCO3a) 27.3 mEq/L (22-28); Base Excess (BEa) 3.7 mEq/L (-2.0 to +3.0); CO2 Tension 37.6 mmHg (35.0-45.0); Calcium, Ionized (arterial) 1.17 mmol/L (1.12-1.30); Carboxyhemoglobin (COHb) 0.3 gm% (0.0-3.0); Hemoglobin (Hb) 10.1 g/dL (12.0-16.0); O2 Tension (PaO2), arterial 60.3 mmHg (80.0-100.0); Potassium - ABG Lab 3.66 mmol/L (3.70-5.30); pH, Arterial 7.48 (7.35-7.45)
[2020-05-08 08:06] LABS: Puncture Site RRA
[2020-05-08] MEDS ORDERED: Ivermectin 3 MG TAB PO SCH ×2 (08:26→09:00)
[2020-05-08 08:28] LABS: #Lymphocytes 0.7 thou/uL (1.20-3.40); #Monocytes 0.2 thou/uL (0.11-0.59); #Neutrophils 1.7 thou/uL (1.40-6.50); %Basophils 0.7 % (0.0-1.0); %Eosinophils 0.1 % (0.0-10.0); %Lymphocytes 27.9 % (21.0-51.0); %Monocytes 6.4 % (0.0-10.0); %Neutrophils 64.8 % (42.0-75.0); Hemoglobin 10.3 g/dL (12.0-16.0); Mean Corpuscular HGB CONC 32.8 g/dL (32.0-36.0); Mean Corpuscular Hemoglobin 29.8 pg (27.0-31.0); Mean Corpuscular Volume 90.9 fL (78.0-98.0); Mean Platelet Volume 9.9 fL (7.4-10.4); Platelet Count 294 thou/uL (130-400); RBC Distribution Width 15.3 % (11.5-14.5); Red Blood Cell (RBC) Count 3.45 mill/uL (4.20-5.40); White Blood Cell (WBC) Count 2.6 thou/uL (4.8-10.8)
[2020-05-08] MEDS: Colchicine 0.3 MG TAB PO SCH ×2 (08:29→20:25)
[2020-05-08] MEDS: Cholecalciferol (Vitamin D3) 400 UNITS TAB PO SCH (08:29)
[2020-05-08] MEDS: Enoxaparin Sodium 60 MG/0.6 ML SYRINGE SC SCH ×2 (08:30→20:26)
[2020-05-08] MEDS: Transdermal Patch Removal TOP SCH ×2 (08:30→20:27)
[2020-05-08] MEDS: Zinc Sulfate 220 MG CAP PO SCH (08:31)
[2020-05-08] MEDS: Pantoprazole 40 MG GRANULES PACKET PER TUBE SCH (08:43)
[2020-05-08] MEDS: Ascorbic Acid 500 mg Chewable Tablet PO SCH (08:43)
[2020-05-08] MEDS: Lactated Ringer's 1,000 ML IV SCH (09:10)
[2020-05-08] MEDS: methylPREDNISolone Sod Succ 1 GM in Sodium Chloride 0.9% 250 ML 250 ML IVPB SCH (10:05)
[2020-05-08 11:32] LABS: Anion Gap 17 mmol/L (10-20); BUN (Urea Nitrogen) 22 mg/dL (9.8-20.1); Calc. Creatinine Clearance 216 mL/min (70-130); Calcium 7.9 mg/dL (7.8-10.44); Carbon Dioxide 21 mmol/L (22-29); Chloride 108 mmol/L (98-107); Glucose 147 mg/dL (70-105); Potassium 4.6 mmol/L (3.5-5.1); Sodium 141 mmol/L (136-145)
[2020-05-08] MEDS: Fluconazole In NaCl,Iso-Osm 100 MG in Admixture Fee 1 EACH IVPB SCH (22:00)
[2020-05-09] MEDS: Propofol 1,000 MG/100 ML VIAL IV PRN ×5 (04:36→21:46)
[2020-05-09 07:48] LABS: Actual Bicarbonate (HCO3a) 26.2 mEq/L (22-28); Base Excess (BEa) 2.4 mEq/L (-2.0 to +3.0); CO2 Tension 37.4 mmHg (35.0-45.0); Calcium, Ionized (arterial) 1.16 mmol/L (1.12-1.30); Carboxyhemoglobin (COHb) 0.5 gm% (0.0-3.0); Hemoglobin (Hb) 9.6 g/dL (12.0-16.0); O2 Tension (PaO2), arterial 71.9 mmHg (80.0-100.0); Potassium - ABG Lab 3.62 mmol/L (3.70-5.30); pH, Arterial 7.46 (7.35-7.45)
[2020-05-09 07:56] LABS: Puncture Site RRA
[2020-05-09 08:35] LABS: #Monocytes 0.3 thou/uL (0.11-0.59); #Neutrophils 3.2 thou/uL (1.40-6.50); %Basophils 0.2 % (0.0-1.0); %Eosinophils 0.3 % (0.0-10.0); %Monocytes 5.9 % (0.0-10.0); %Neutrophils 71.6 % (42.0-75.0); Hemoglobin 9.5 g/dL (12.0-16.0); Mean Corpuscular HGB CONC 32.9 g/dL (32.0-36.0); Mean Corpuscular Volume 91.4 fL (78.0-98.0); Mean Platelet Volume 9.6 fL (7.4-10.4); Platelet Count 292 thou/uL (130-400); RBC Distribution Width 15.6 % (11.5-14.5); Red Blood Cell (RBC) Count 3.15 mill/uL (4.20-5.40); White Blood Cell (WBC) Count 4.4 thou/uL (4.8-10.8)
[2020-05-09] MEDS: Cholecalciferol (Vitamin D3) 400 UNITS TAB PO SCH (09:37)
[2020-05-09] MEDS: Ascorbic Acid 500 mg Chewable Tablet PO SCH (09:37)
[2020-05-09] MEDS: Transdermal Patch Removal TOP SCH ×2 (09:37→20:58)
[2020-05-09] MEDS: methylPREDNISolone Sod Succ 1 GM in Sodium Chloride 0.9% 250 ML 250 ML IVPB SCH (09:37)
[2020-05-09] MEDS: Pantoprazole 40 MG GRANULES PACKET PER TUBE SCH (09:38)
[2020-05-09] MEDS: Enoxaparin Sodium 60 MG/0.6 ML SYRINGE SC SCH ×2 (09:38→20:44)
[2020-05-09] MEDS: Zinc Sulfate 220 MG CAP PO SCH (09:38)
[2020-05-09] MEDS: Colchicine 0.3 MG TAB PO SCH ×2 (09:38→20:45)
[2020-05-09] MEDS: Lactated Ringer's 1,000 ML IV SCH ×2 (09:39→20:44)
[2020-05-09] MEDS ORDERED: Fentanyl CADD 100 ML ONE (10:35)
[2020-05-09] MEDS: Fentanyl CADD 100 ML IV SCH (10:36)
[2020-05-09] MEDS: methylPREDNISolone Sod Succ/PF 125 MG/2 ML VIAL IVP SCH ×2 (18:03→23:09)
[2020-05-10] MEDS ORDERED: Fentanyl CADD 100 ML ONE ×3 (02:51→20:50)
[2020-05-10] MEDS: Propofol 1,000 MG/100 ML VIAL IV PRN ×2 (02:54→20:45)
[2020-05-10] MEDS: methylPREDNISolone Sod Succ/PF 125 MG/2 ML VIAL IVP SCH (06:50)
[2020-05-10] MEDS: Enoxaparin Sodium 60 MG/0.6 ML SYRINGE SC SCH ×2 (07:26→20:22)
[2020-05-10] MEDS: Zinc Sulfate 220 MG CAP PO SCH (07:26)
[2020-05-10] MEDS: Colchicine 0.3 MG TAB PO SCH ×2 (07:26→20:23)
[2020-05-10] MEDS: Lidocaine 5% Patch TD PRN (07:26)
[2020-05-10] MEDS: Ascorbic Acid 500 mg Chewable Tablet PO SCH (07:27)
[2020-05-10] MEDS: Cholecalciferol (Vitamin D3) 400 UNITS TAB PO SCH (07:27)
[2020-05-10] MEDS: Pantoprazole 40 MG GRANULES PACKET PER TUBE SCH (07:27)
[2020-05-10] MEDS ORDERED: methylPREDNISolone Sod Succ/PF 125 MG/2 ML VIAL IVP SCH (09:00)
[2020-05-10] MEDS ORDERED: methylPREDNISolone Sod Succ 40 MG VIAL IVPB SCH (09:00)
[2020-05-10] MEDS ORDERED: SODIUM CHLORIDE 0.45% IVP SCH (09:00)
[2020-05-10] MEDS ORDERED: METHYLPREDNISOLONE SODIUM SUCC IVP SCH ×2 (09:00)
[2020-05-10] MEDS ORDERED: SODIUM CHLORIDE 0.9% IVP SCH (09:00)
[2020-05-10] MEDS: METHYLPREDNISOLONE SODIUM SUCC IVPB SCH (10:15)
[2020-05-10] MEDS: Transdermal Patch Removal TOP SCH ×2 (10:15→20:23)
[2020-05-10] MEDS: SODIUM CHLORIDE 0.45% IVPB SCH (10:15)
[2020-05-11] MEDS: Propofol 1,000 MG/100 ML VIAL IV PRN ×5 (01:21→23:08)
[2020-05-11 07:56] LABS: Actual Bicarbonate (HCO3a) 27.5 mEq/L (22-28); Base Excess (BEa) 2.7 mEq/L (-2.0 to +3.0); CO2 Tension 43.1 mmHg (35.0-45.0); Calcium, Ionized (arterial) 1.18 mmol/L (1.12-1.30); Carboxyhemoglobin (COHb) 0.9 gm% (0.0-3.0); Hemoglobin (Hb) 11.1 g/dL (12.0-16.0); Potassium - ABG Lab 3.89 mmol/L (3.70-5.30); pH, Arterial 7.42 (7.35-7.45)
[2020-05-11 07:57] LABS: Hemoglobin 9.8 g/dL (12.0-16.0); Mean Corpuscular HGB CONC 31.7 g/dL (32.0-36.0); Mean Corpuscular Volume 91.5 fL (78.0-98.0); Mean Platelet Volume 9.1 fL (7.4-10.4); Platelet Count 284 thou/uL (130-400); RBC Distribution Width 15.7 % (11.5-14.5); Red Blood Cell (RBC) Count 3.38 mill/uL (4.20-5.40); White Blood Cell (WBC) Count 5.4 thou/uL (4.8-10.8)
[2020-05-11 08:01] LABS: ALV-art Gradient 170.325 mmHg (0-20); Puncture Site RRA
[2020-05-11 08:11] LABS: Anion Gap 10 mmol/L (10-20); BUN (Urea Nitrogen) 26 mg/dL (9.8-20.1); Calc. Creatinine Clearance 206 mL/min (70-130); Calcium 8.1 mg/dL (7.8-10.44); Carbon Dioxide 29 mmol/L (22-29); Chloride 107 mmol/L (98-107); Glucose 133 mg/dL (70-105); Potassium 3.8 mmol/L (3.5-5.1); Sodium 142 mmol/L (136-145)
[2020-05-11 08:56] LABS: Band 13 % (5-11); Lymphocytes 10 % (21-51); MDiff Complete? YES; Monocytes 7 % (0-10); Myelocyte 3 % (0-0); Neutrophil 67 % (42-75); Platelet Morphology Comment Appears Adequate; Polychromasia SLIGHT = 2-3 cells (100X) (0-2/hpf); Stomatocytes SLIGHT = 2-5 cells (100X) (0-1/hpf); Vacuoles SLIGHT
[2020-05-11] MEDS: METHYLPREDNISOLONE SODIUM SUCC IVPB SCH (09:06)
[2020-05-11] MEDS: Enoxaparin Sodium 60 MG/0.6 ML SYRINGE SC SCH ×2 (09:06→19:53)
[2020-05-11] MEDS: SODIUM CHLORIDE 0.45% IVPB SCH (09:06)
[2020-05-11] MEDS: Zinc Sulfate 220 MG CAP PO SCH (09:06)
[2020-05-11] MEDS: Pantoprazole 40 MG GRANULES PACKET PER TUBE SCH (09:06)
[2020-05-11] MEDS: Cholecalciferol (Vitamin D3) 400 UNITS TAB PO SCH (09:06)
[2020-05-11] MEDS: Ascorbic Acid 500 mg Chewable Tablet PO SCH (09:06)
[2020-05-11] MEDS: Transdermal Patch Removal TOP SCH (09:13)
[2020-05-11] MEDS: Lorazepam 2 MG/ML VIAL SLOW IVP PRN (12:47)
[2020-05-11] MEDS ORDERED: Fentanyl CADD 100 ML ONE (15:59)
[2020-05-11] MEDS: Fentanyl CADD 100 ML IV SCH (16:01)
[2020-05-12] MEDS: Transdermal Patch Removal TOP SCH ×3 (00:53→21:24)
[2020-05-12] MEDS: Lorazepam 2 MG/ML VIAL SLOW IVP PRN (01:12)
[2020-05-12] MEDS: Propofol 1,000 MG/100 ML VIAL IV PRN ×4 (03:04→18:44)
[2020-05-12 04:47] LABS: #Lymphocytes 0.6 thou/uL (1.20-3.40); #Monocytes 0.3 thou/uL (0.11-0.59); #Neutrophils 4.2 thou/uL (1.40-6.50); %Basophils 0.2 % (0.0-1.0); %Eosinophils 0.7 % (0.0-10.0); %Lymphocytes 12.3 % (21.0-51.0); %Neutrophils 81.8 % (42.0-75.0); Hemoglobin 10.2 g/dL (12.0-16.0); Mean Corpuscular HGB CONC 31.5 g/dL (32.0-36.0); Mean Corpuscular Hemoglobin 29.3 pg (27.0-31.0); Mean Corpuscular Volume 92.9 fL (78.0-98.0); Mean Platelet Volume 9.1 fL (7.4-10.4); Platelet Count 251 thou/uL (130-400); RBC Distribution Width 15.6 % (11.5-14.5); Red Blood Cell (RBC) Count 3.49 mill/uL (4.20-5.40); White Blood Cell (WBC) Count 5.2 thou/uL (4.8-10.8)
[2020-05-12] MEDS: Ascorbic Acid 500 mg Chewable Tablet PO SCH (08:07)
[2020-05-12] MEDS: METHYLPREDNISOLONE SODIUM SUCC IVPB SCH (08:07)
[2020-05-12] MEDS: Enoxaparin Sodium 60 MG/0.6 ML SYRINGE SC SCH ×2 (08:07→21:24)
[2020-05-12] MEDS: Cholecalciferol (Vitamin D3) 400 UNITS TAB PO SCH (08:07)
[2020-05-12] MEDS: SODIUM CHLORIDE 0.45% IVPB SCH (08:07)
[2020-05-12] MEDS: Pantoprazole 40 MG GRANULES PACKET PER TUBE SCH (08:07)
[2020-05-12] MEDS: Zinc Sulfate 220 MG CAP PO SCH (08:08)
[2020-05-12 08:12] LABS: Base Excess (BEa) 6.5 mEq/L (-2.0 to +3.0); CO2 Tension 51.1 mmHg (35.0-45.0); Calcium, Ionized (arterial) 1.17 mmol/L (1.12-1.30); Carboxyhemoglobin (COHb) 1.3 gm% (0.0-3.0); Hemoglobin (Hb) 10.5 g/dL (12.0-16.0); O2 Tension (PaO2), arterial 76.8 mmHg (80.0-100.0); Potassium - ABG Lab 3.92 mmol/L (3.70-5.30); pH, Arterial 7.42 (7.35-7.45)
[2020-05-12 08:14] LABS: Puncture Site RRA
[2020-05-12 08:15] LABS: ALV-art Gradient 144.525 mmHg (0-20)
[2020-05-12] MEDS: Zinc Sulfate 220 MG CAP PER TUBE SCH (09:07)
[2020-05-12] MEDS ORDERED: Fentanyl CADD 100 ML ONE (14:23)
[2020-05-13] MEDS: Propofol 1,000 MG/100 ML VIAL IV PRN ×2 (03:09→07:22)
[2020-05-13 04:34] LABS: #Eosinphils 0.1 thou/uL (0.0-0.7); #Lymphocytes 0.6 thou/uL (1.20-3.40); #Monocytes 0.2 thou/uL (0.11-0.59); #Neutrophils 4.6 thou/uL (1.40-6.50); %Basophils 0.1 % (0.0-1.0); %Monocytes 4.2 % (0.0-10.0); %Neutrophils 83.7 % (42.0-75.0); Hemoglobin 10.7 g/dL (12.0-16.0); Mean Corpuscular HGB CONC 31.9 g/dL (32.0-36.0); Mean Corpuscular Hemoglobin 29.9 pg (27.0-31.0); Mean Corpuscular Volume 93.7 fL (78.0-98.0); Mean Platelet Volume 9.3 fL (7.4-10.4); Platelet Count 230 thou/uL (130-400); RBC Distribution Width 15.8 % (11.5-14.5); Red Blood Cell (RBC) Count 3.58 mill/uL (4.20-5.40); White Blood Cell (WBC) Count 5.5 thou/uL (4.8-10.8)
[2020-05-13 06:03] LABS: Anion Gap 12 mmol/L (10-20); BUN (Urea Nitrogen) 23 mg/dL (9.8-20.1); Calc. Creatinine Clearance 203 mL/min (70-130); Calcium 8.3 mg/dL (7.8-10.44); Carbon Dioxide 32 mmol/L (22-29); Chloride 104 mmol/L (98-107); Glucose 121 mg/dL (70-105); Potassium 3.6 mmol/L (3.5-5.1); Sodium 144 mmol/L (136-145)
[2020-05-13] MEDS: SODIUM CHLORIDE 0.45% IVPB SCH (07:16)
[2020-05-13] MEDS: METHYLPREDNISOLONE SODIUM SUCC IVPB SCH (07:16)
[2020-05-13] MEDS: Ascorbic Acid 500 mg Chewable Tablet PO SCH (07:20)
[2020-05-13] MEDS: Cholecalciferol (Vitamin D3) 400 UNITS TAB PO SCH (07:20)
[2020-05-13] MEDS: Pantoprazole 40 MG GRANULES PACKET PER TUBE SCH (07:20)
[2020-05-13] MEDS: Enoxaparin Sodium 60 MG/0.6 ML SYRINGE SC SCH ×2 (07:21→20:33)
[2020-05-13] MEDS: Zinc Sulfate 220 MG CAP PER TUBE SCH (07:21)
[2020-05-13 07:43] LABS: Actual Bicarbonate (HCO3a) 29.4 mEq/L (22-28); Base Excess (BEa) 7.1 mEq/L (-2.0 to +3.0); CO2 Tension 33.5 mmHg (35.0-45.0); Calcium, Ionized (arterial) 1.15 mmol/L (1.12-1.30); Carboxyhemoglobin (COHb) 0.6 gm% (0.0-3.0); O2 Tension (PaO2), arterial 78.6 mmHg (80.0-100.0); Potassium - ABG Lab 3.97 mmol/L (3.70-5.30)
[2020-05-13] MEDS ORDERED: acetaZOLAMIDE Sodium 500 mg Vial IVP SCH (07:45)
[2020-05-13] MEDS ORDERED: DC Sedation Protocol FS ONE (08:08)
[2020-05-13] MEDS ORDERED: Sterile Water 10 ML ONE (09:51)
[2020-05-13] MEDS: Transdermal Patch Removal TOP SCH ×2 (09:54→20:15)
[2020-05-13 16:23] LABS: ALV-art Gradient 164.725 mmHg (0-20); Puncture Site LRA; pH, Arterial 7.56 (7.35-7.45)
[2020-05-14 06:28] LABS: #Lymphocytes 0.6 thou/uL (1.20-3.40); #Monocytes 0.1 thou/uL (0.11-0.59); #Neutrophils 4.2 thou/uL (1.40-6.50); %Basophils 0.3 % (0.0-1.0); %Eosinophils 0.3 % (0.0-10.0); %Lymphocytes 12.3 % (21.0-51.0); %Monocytes 1.3 % (0.0-10.0); %Neutrophils 85.9 % (42.0-75.0); Hemoglobin 12.2 g/dL (12.0-16.0); Mean Corpuscular HGB CONC 32.9 g/dL (32.0-36.0); Mean Corpuscular Hemoglobin 30.2 pg (27.0-31.0); Mean Corpuscular Volume 91.9 fL (78.0-98.0); Platelet Count 200 thou/uL (130-400); RBC Distribution Width 15.9 % (11.5-14.5); Red Blood Cell (RBC) Count 4.06 mill/uL (4.20-5.40); White Blood Cell (WBC) Count 4.9 thou/uL (4.8-10.8)
[2020-05-14 06:44] LABS: Anion Gap 15 mmol/L (10-20); BUN (Urea Nitrogen) 20 mg/dL (9.8-20.1); CRP (Inflammatory) 2.34 mg/dL (= or < 0.5); Calc. Creatinine Clearance 188 mL/min (70-130); Calcium 8.7 mg/dL (7.8-10.44); Carbon Dioxide 20 mmol/L (22-29); Chloride 107 mmol/L (98-107); Glucose 114 mg/dL (70-105); Potassium 4.4 mmol/L (3.5-5.1); Sodium 138 mmol/L (136-145)
[2020-05-14] MEDS: Enoxaparin Sodium 60 MG/0.6 ML SYRINGE SC SCH ×2 (08:05→19:57)
[2020-05-14] MEDS: Ascorbic Acid 500 mg Chewable Tablet PO SCH ×2 (08:06→11:03)
[2020-05-14] MEDS: Transdermal Patch Removal TOP SCH ×2 (08:06→19:47)
[2020-05-14] MEDS: Pantoprazole 40 MG GRANULES PACKET PER TUBE SCH ×2 (08:06→11:04)
[2020-05-14] MEDS: Zinc Sulfate 220 MG CAP PER TUBE SCH ×2 (08:06→11:04)
[2020-05-14] MEDS: Cholecalciferol (Vitamin D3) 400 UNITS TAB PO SCH ×2 (08:06→11:04)
[2020-05-14] MEDS: METHYLPREDNISOLONE SODIUM SUCC IVPB SCH (10:24)
[2020-05-14] MEDS: SODIUM CHLORIDE 0.45% IVPB SCH (10:24)
[2020-05-14] MEDS: methylPREDNISolone Sod Succ 40 MG VIAL IVP SCH ×2 (11:53→17:59)
[2020-05-14] MEDS: Nystatin Powder 15 GM BOT TOP PRN (19:06)
[2020-05-15] MEDS: methylPREDNISolone Sod Succ 40 MG VIAL IVP SCH ×5 (01:24→23:42)
[2020-05-15 06:25] VITALS: BMI 34.5
[2020-05-15 06:29] LABS: #Eosinphils 0.1 thou/uL (0.0-0.7); #Lymphocytes 0.8 thou/uL (1.20-3.40); #Monocytes 0.8 thou/uL (0.11-0.59); #Neutrophils 6.7 thou/uL (1.40-6.50); %Basophils 0.5 % (0.0-1.0); %Eosinophils 0.9 % (0.0-10.0); %Lymphocytes 9.5 % (21.0-51.0); %Monocytes 9.6 % (0.0-10.0); %Neutrophils 79.5 % (42.0-75.0); Hemoglobin 13.2 g/dL (12.0-16.0); Mean Corpuscular HGB CONC 32.2 g/dL (32.0-36.0); Mean Corpuscular Hemoglobin 29.3 pg (27.0-31.0); Mean Corpuscular Volume 90.9 fL (78.0-98.0); Mean Platelet Volume 9.2 fL (7.4-10.4); Platelet Count 186 thou/uL (130-400); RBC Distribution Width 16.2 % (11.5-14.5); Red Blood Cell (RBC) Count 4.52 mill/uL (4.20-5.40); White Blood Cell (WBC) Count 8.5 thou/uL (4.8-10.8)
[2020-05-15 06:50] LABS: Anion Gap 16 mmol/L (10-20); BUN (Urea Nitrogen) 26 mg/dL (9.8-20.1); Calc. Creatinine Clearance 184 mL/min (70-130); Calcium 8.7 mg/dL (7.8-10.44); Carbon Dioxide 21 mmol/L (22-29); Chloride 105 mmol/L (98-107); Glucose 96 mg/dL (70-105); Potassium 3.4 mmol/L (3.5-5.1); Sodium 139 mmol/L (136-145)
[2020-05-15] MEDS: Enoxaparin Sodium 60 MG/0.6 ML SYRINGE SC SCH ×2 (07:51→20:58)
[2020-05-15] MEDS: Cholecalciferol (Vitamin D3) 400 UNITS TAB PO SCH (07:51)
[2020-05-15] MEDS: Zinc Sulfate 220 MG CAP PER TUBE SCH (07:52)
[2020-05-15] MEDS: Ascorbic Acid 500 mg Chewable Tablet PO SCH (07:52)
[2020-05-15] MEDS: Pantoprazole 40 MG GRANULES PACKET PER TUBE SCH (07:57)
[2020-05-15] MEDS: Transdermal Patch Removal TOP SCH ×2 (08:04→21:03)
[2020-05-15] MEDS: Acetaminophen 325 MG TAB PO PRN (17:51)
[2020-05-16] MEDS: methylPREDNISolone Sod Succ 40 MG VIAL IVP SCH ×4 (05:51→23:34)
[2020-05-16] MEDS: Zinc Sulfate 220 MG CAP PER TUBE SCH (08:46)
[2020-05-16] MEDS: Ascorbic Acid 500 mg Chewable Tablet PO SCH (08:47)
[2020-05-16] MEDS: Pantoprazole 40 MG GRANULES PACKET PER TUBE SCH (08:48)
[2020-05-16] MEDS: Cholecalciferol (Vitamin D3) 400 UNITS TAB PO SCH (08:48)
[2020-05-16] MEDS: Enoxaparin Sodium 60 MG/0.6 ML SYRINGE SC SCH ×2 (08:52→20:23)
[2020-05-16] MEDS: Transdermal Patch Removal TOP SCH ×2 (08:54→20:32)
[2020-05-16] MEDS: Acetaminophen 325 MG TAB PO PRN (20:17)
[2020-05-16] MEDS: Lidocaine 5% Patch TD PRN (20:21)
[2020-05-17] MEDS: Acetaminophen 325 MG TAB PO PRN ×2 (02:14→23:39)
[2020-05-17] MEDS: methylPREDNISolone Sod Succ 40 MG VIAL IVP SCH ×4 (05:46→23:39)
[2020-05-17] MEDS: Ascorbic Acid 500 mg Chewable Tablet PO SCH (08:31)
[2020-05-17] MEDS: Enoxaparin Sodium 60 MG/0.6 ML SYRINGE SC SCH ×2 (08:31→21:01)
[2020-05-17] MEDS: Cholecalciferol (Vitamin D3) 400 UNITS TAB PO SCH (08:31)
[2020-05-17] MEDS: Pantoprazole 40 MG GRANULES PACKET PER TUBE SCH (08:32)
[2020-05-17] MEDS: Zinc Sulfate 220 MG CAP PER TUBE SCH (08:32)
[2020-05-17] MEDS: Transdermal Patch Removal TOP SCH ×2 (08:56→22:18)
[2020-05-17] MEDS: traMADol HCl 50 MG TAB PO PRN ×2 (12:37→19:04)
[2020-05-17] MEDS: Lidocaine 5% Patch TD PRN (21:01)
[2020-05-18] MEDS: methylPREDNISolone Sod Succ 40 MG VIAL IVP SCH (05:57)
[2020-05-18] MEDS: Ascorbic Acid 500 mg Chewable Tablet PO SCH (08:44)
[2020-05-18] MEDS: Cholecalciferol (Vitamin D3) 400 UNITS TAB PO SCH (08:44)
[2020-05-18] MEDS: Zinc Sulfate 220 MG CAP PER TUBE SCH (08:44)
[2020-05-18] MEDS: Pantoprazole 40 MG GRANULES PACKET PER TUBE SCH (08:45)
[2020-05-18] MEDS: predniSONE 20 MG TAB PO SCH (08:45)
[2020-05-18] MEDS: Enoxaparin Sodium 60 MG/0.6 ML SYRINGE SC SCH ×2 (08:57→20:34)
[2020-05-18] MEDS: Transdermal Patch Removal TOP SCH ×2 (08:58→20:34)
[2020-05-18] MEDS: traMADol HCl 50 MG TAB PO PRN (16:24)
[2020-05-19] MEDS: traMADol HCl 50 MG TAB PO PRN (00:01)
[2020-05-19] MEDS: Ascorbic Acid 500 mg Chewable Tablet PO SCH (09:20)
[2020-05-19] MEDS: Cholecalciferol (Vitamin D3) 400 UNITS TAB PO SCH (09:21)
[2020-05-19] MEDS: Pantoprazole 40 MG GRANULES PACKET PER TUBE SCH (09:21)
[2020-05-19] MEDS: predniSONE 20 MG TAB PO SCH (09:21)
[2020-05-19] MEDS: Enoxaparin Sodium 60 MG/0.6 ML SYRINGE SC SCH (09:22)
[2020-05-19] MEDS: Zinc Sulfate 220 MG CAP PER TUBE SCH (09:22)
[2020-05-19] MEDS: Transdermal Patch Removal TOP SCH (09:34)
[2020-05-19 16:35] VITALS: BP 115/71; TEMP 98.3
[2020-05-23] MEDS ORDERED: predniSONE 20 MG TAB PO SCH (09:00)
== END 2020-05-19 16:55 | DRG 870 ==
LOC: ERS 03:07 → CCU 04:50 → ERHOLD 05-01 04:50 → CCU 05-01 04:51 → T4-A 05-15 16:08
PROVIDERS: ADMIT Internal Medicine; ATTEND Internal Medicine
PROC: 8E0ZXY6 Isolation (ICD-10-PCS; 2020-04-26)
PROC: 5A09457 Assistance with Respiratory Ventilation, 24-96 Consecutive Hours, Continuous Positive Airway Pressure (ICD-10-PCS; 2020-04-26)
PROC: 5A1955Z Respiratory Ventilation, Greater than 96 Consecutive Hours (ICD-10-PCS; principal; 2020-04-29)
PROC: 0BH17EZ Insertion of Endotracheal Airway into Trachea, Via Natural or Artificial Opening (ICD-10-PCS; 2020-04-29)
DX: A41.89 Other specified sepsis (principal); U07.1 COVID-19; J12.82 Pneumonia due to coronavirus disease 2019; J96.01 Acute respiratory failure with hypoxia; G93.41 Metabolic encephalopathy; N17.9 Acute kidney failure, unspecified; E87.3 Alkalosis; R45.1 Restlessness and agitation; E66.01 Morbid (severe) obesity due to excess calories; F41.9 Anxiety disorder, unspecified; Z68.34 Body mass index [BMI] 34.0-34.9, adult; Z78.1 Physical restraint status; Z90.710 Acquired absence of both cervix and uterus; F17.210 Nicotine dependence, cigarettes, uncomplicated
CPT/HCPCS: 0240U; 36415; 36416; 36600; 71045; 71275; 80048; 80053; 81003; 81015; 82550; 82728; 82805; 83605; 83880; 84484; 85025; 85379; 86140; 87040; 87086; 87149; 93005; 94002; 94003; 94660; 99285; J0456; J0696; J1100; J1120; J1450; J1650; J2060; J2270; J2704; J2920; J2930; J3010; J3490; J7050; J7512; Q9967

== ENCOUNTER 2020-05-20 16:10 | Observation (INO) | payer SELFPAY ==
[2020-05-20 16:41] LABS: Hemoglobin 11.4 g/dL (12.0-16.0); Mean Corpuscular HGB CONC 33.9 g/dL (32.0-36.0); Mean Corpuscular Hemoglobin 30.8 pg (27.0-31.0); Mean Corpuscular Volume 90.9 fL (78.0-98.0); Mean Platelet Volume 9.5 fL (7.4-10.4); Platelet Count 122 thou/uL (130-400); RBC Distribution Width 16.9 % (11.5-14.5); Red Blood Cell (RBC) Count 3.69 mill/uL (4.20-5.40)
[2020-05-20 17:02] LABS: Acetaminophen Less than 6.0 mcg/mL (10.0-30.0); Alcohol Less than 10 mg/dL (Less than 10); Salicylate Less than 8.0 mg/dL (15.0-30.0)
[2020-05-20 17:05] LABS: ALT (SGPT) 32 U/L (8-55); AST (SGOT) 17 U/L (5-34); Albumin 3.3 g/dL (3.5-5.0); Alkaline Phosphatase 73 U/L (40-110); Anion Gap 13 mmol/L (10-20); BUN (Urea Nitrogen) 17 mg/dL (9.8-20.1); Bilirubin, Total 0.9 mg/dL (0.2-1.2); Calc. Creatinine Clearance 0 mL/min (70-130); Calcium 8.4 mg/dL (7.8-10.44); Carbon Dioxide 23 mmol/L (22-29); Chloride 106 mmol/L (98-107); Globulin 3.5 g/dL (2.4-3.5); Glucose 146 mg/dL (70-105); Potassium 3.2 mmol/L (3.5-5.1); Protein, Total 6.8 g/dL (6.0-8.3); Sodium 139 mmol/L (136-145)
[2020-05-20 17:10] LABS: Band 8 % (5-11); Lymphocytes 17 % (21-51); MDiff Complete? YES; Metamyelocyte 2 % (0-0); Monocytes 2 % (0-10); Myelocyte 5 % (0-0); Neutrophil 62 % (42-75); Platelet Morphology Comment Appears Decreased; RBC Morphology Normal; Reactive Lymphocytes 4 % (0-10)
[2020-05-20 17:23] LABS: Bacteria/HPF 4+ HPF (None Seen); Bilirubin Negative (Negative); Blood, Urine Negative (Negative); Clarity Turbid (Clear); Glucose, Urine (Dipstick) Normal (Negative); Ketone, Urine Trace mg/dL (Negative); Leukocyte Negative Leu/uL (Negative); Nitrite 2+ (Negative); Protein, Urine (Dipstick) 20 mg/dL (Neg-Trace); Specific Gravity, Urine 1.028 (1.002-1.036); pH, Urine 6.5 (5.0-9.0)
[2020-05-20 17:28] LABS: Amphetamine Not Detected (NotDetected); Barbiturates Screen Not Detected (NotDetected); Benzodiazepine Screen Not Detected (NotDetected); Cocaine Metabolite Screen Not Detected (NotDetected); Medtox Control Line Valid? VALID (VALID); Medtox Reader # READER 4; Methadone Not Detected (NotDetected); Methamphetamine Not Detected (NotDetected); Opiate Screen Not Detected (NotDetected); Oxycodone Screen Not Detected (NotDetected); Phencyclidine (PCP) Not Detected (NotDetected); THC/Cannabinoid Screen Not Detected (NotDetected); Tricyclic Screen Not Detected (NotDetected)
[2020-05-20] MEDS ORDERED: traMADol HCl 50 MG TAB PO PRN (21:32)
[2020-05-20] MEDS ORDERED: Calcium Carbonate 500 MG ChewTAB PO PRN (21:33)
[2020-05-20] MEDS ORDERED: Acetaminophen 325 MG TAB PO PRN (21:33)
[2020-05-20] MEDS ORDERED: Guaifenesin DM 100-10/5 ML UDCUP PO PRN (21:33)
[2020-05-20] MEDS ORDERED: Ondansetron ODT 4 MG TAB PO PRN (21:33)
[2020-05-20] MEDS ORDERED: Senokot S 8.6-50 MG TAB PO PRN (21:33)
[2020-05-20] MEDS ORDERED: Potassium Chloride 20 MEQ TAB PO SCH (22:00)
[2020-05-20] MEDS ORDERED: cefTRIAXone\\ROCEPHIN 1 GM VIAL ONE (22:29)
[2020-05-21 00:06] VITALS: BMI 40.8
[2020-05-21] MEDS: Benzonatate 100 MG CAP PO PRN ×2 (00:44→20:10)
[2020-05-21 06:13] LABS: Hemoglobin 10.7 g/dL (12.0-16.0); Mean Corpuscular HGB CONC 33.6 g/dL (32.0-36.0); Mean Corpuscular Hemoglobin 30.7 pg (27.0-31.0); Mean Corpuscular Volume 91.5 fL (78.0-98.0); Mean Platelet Volume 9.7 fL (7.4-10.4); Platelet Count 121 thou/uL (130-400); RBC Distribution Width 16.7 % (11.5-14.5); Red Blood Cell (RBC) Count 3.49 mill/uL (4.20-5.40); White Blood Cell (WBC) Count 9.5 thou/uL (4.8-10.8)
[2020-05-21 07:00] LABS: Band 8 % (5-11); Lymphocytes 23 % (21-51); MDiff Complete? YES; Monocytes 7 % (0-10); Myelocyte 1 % (0-0); Neutrophil 60 % (42-75)
[2020-05-21] MEDS: predniSONE 20 MG TAB PO SCH (08:58)
[2020-05-21 09:19] LABS: Anion Gap 14 mmol/L (10-20); BUN (Urea Nitrogen) 20 mg/dL (9.8-20.1); Calc. Creatinine Clearance 226 mL/min (70-130); Calcium 8.1 mg/dL (7.8-10.44); Carbon Dioxide 22 mmol/L (22-29); Chloride 105 mmol/L (98-107); Glucose 78 mg/dL (70-105); Potassium 3.4 mmol/L (3.5-5.1); Sodium 138 mmol/L (136-145)
[2020-05-21] MEDS: Enoxaparin Sodium 60 MG/0.6 ML SYRINGE SC SCH ×2 (10:18→20:11)
[2020-05-21] MEDS: Nicotine 14 MG PATCH TD SCH (17:23)
[2020-05-22 08:32] VITALS: TEMP 98.2
[2020-05-22] MEDS: Enoxaparin Sodium 60 MG/0.6 ML SYRINGE SC SCH (08:47)
[2020-05-22] MEDS: predniSONE 20 MG TAB PO SCH (08:47)
[2020-05-22] MEDS ORDERED: Loratadine 10 MG TAB PO SCH (09:00)
[2020-05-22] MEDS: Aluminum & Magnesium Hydroxide 60 ML, diphenhydrAMINE 150 MG, Lidocaine 2% Viscous Solu... SSW SCH ×2 (12:39→17:30)
[2020-05-22] MEDS: Nicotine 14 MG PATCH TD SCH (17:30)
[2020-05-22 18:18] VITALS: BP 120/72
== END 2020-05-22 18:17 | disposition home or self-care (01) ==
LOC: ERS 16:10 → T4-A 21:19
PROVIDERS: ADMIT Internal Medicine; ATTEND Family Medicine
DX: U07.1 COVID-19 (principal); J12.82 Pneumonia due to coronavirus disease 2019; J96.01 Acute respiratory failure with hypoxia; E87.6 Hypokalemia; R53.81 Other malaise; N39.0 Urinary tract infection, site not specified; B96.1 Klebsiella pneumoniae [K. pneumoniae] as the cause of diseases classified elsewhere; F41.9 Anxiety disorder, unspecified; F32.9 Major depressive disorder, single episode, unspecified; F17.210 Nicotine dependence, cigarettes, uncomplicated; H92.01 Otalgia, right ear; B37.0 Candidal stomatitis; E66.9 Obesity, unspecified; Z68.41 Body mass index [BMI] 40.0-44.9, adult; Z79.52 Long term (current) use of systemic steroids; Z79.899 Other long term (current) drug therapy
CPT/HCPCS: 36415; 80048; 80053; 80306; 80307; 81003; 81015; 83735; 84443; 85025; 87077; 87086; 87186; 96365; 96372; G0378; J0696; J1650; J7512

== ENCOUNTER 2020-06-12 04:34 | Emergency (ER) | payer SELFPAY ==
[2020-06-12 05:28] LABS: Hemoglobin 11.9 g/dL (12.0-16.0); Mean Corpuscular Hemoglobin 29.9 pg (27.0-31.0); Mean Corpuscular Volume 96.6 fL (78.0-98.0); Mean Platelet Volume 8.6 fL (7.4-10.4); Platelet Count 270 thou/uL (130-400); RBC Distribution Width 16.8 % (11.5-14.5); Red Blood Cell (RBC) Count 3.98 mill/uL (4.20-5.40); White Blood Cell (WBC) Count 11.4 thou/uL (4.8-10.8)
[2020-06-12] MEDS ORDERED: Ketamine 50 MG/ML (10ML VIAL) ONE (05:37)
[2020-06-12] MEDS ORDERED: Norepinephrine 8 MG/0.9% NS 250 ML ONE (05:37)
[2020-06-12 05:42] LABS: ALT (SGPT) 60 U/L (8-55); AST (SGOT) 44 U/L (5-34); Albumin 2.7 g/dL (3.5-5.0); Alkaline Phosphatase 140 U/L (40-110); Anion Gap 23 mmol/L (10-20); BUN (Urea Nitrogen) 9 mg/dL (9.8-20.1); Calc. Creatinine Clearance 0 mL/min (70-130); Carbon Dioxide 16 mmol/L (22-29); Chloride 103 mmol/L (98-107); Globulin 3.1 g/dL (2.4-3.5); Glucose 222 mg/dL (70-105); Lymphocytes 63 % (21-51); MDiff Complete? YES; Monocytes 16 % (0-10); Neutrophil 20 % (42-75); Platelet Morphology Comment Appears Adequate; Potassium 4.3 mmol/L (3.5-5.1); Protein, Total 5.8 g/dL (6.0-8.3); Sodium 138 mmol/L (136-145)
[2020-06-12] MEDS ORDERED: Lidocaine 1% (PF) 30 ML VIAL ONE (05:44)
[2020-06-12 05:55] LABS: Actual Bicarbonate (HCO3a) 9.7 mEq/L (22-28); Analyzer IN Cardio ER; Base Excess (BEa) -16.4 mEq/L (-2.0 to +3.0); Calcium, Ionized (arterial) 1.04 mmol/L (1.12-1.30); Carboxyhemoglobin (COHb) 0.3 gm% (0.0-3.0); Hemoglobin (Hb) 11.6 g/dL (12.0-16.0); O2 Tension (PaO2), arterial 317.4 mmHg (80.0-100.0); Potassium - ABG Lab 4.58 mmol/L (3.70-5.30)
[2020-06-12 06:00] LABS: CO2 Tension 24.7 mmHg (35.0-45.0); pH, Arterial 7.21 (7.35-7.45)
[2020-06-12 06:01] LABS: ALV-art Gradient 364.725 mmHg (0-20); Puncture Site RRA
[2020-06-12 06:09] LABS: CKMB 13.9 ng/mL (0-6.6)
[2020-06-13] MEDS ORDERED: Sodium Bicarb 50 MEQ/50 ML Abboject 8.4% SYRINGE ONE (03:31)
[2020-06-13] MEDS ORDERED: Heparin 10,000 UNITS/ 10 ML VIAL ONE (03:31)
[2020-06-13] MEDS ORDERED: EPINEPHrine 1 MG/10 ML Abboject SYRINGE ONE (03:31)
[2020-06-13] MEDS ORDERED: Succinylcholine 200 MG/10 ml SYRINGE FS ONE (03:31)
[2020-06-13] MEDS ORDERED: Amiodarone 150 MG/3 ML VIAL ONE (03:31)
== END 2020-06-12 06:25 | disposition expired ==
LOC: ERS 04:34
DX: I46.9 Cardiac arrest, cause unspecified (principal); I21.3 ST elevation (STEMI) myocardial infarction of unspecified site; F17.210 Nicotine dependence, cigarettes, uncomplicated
CPT/HCPCS: 31500; 36556; 36600; 71045; 82553; 82805; 83880; 84484; 85379; 92950; 93005; 94002; 96365; 96375; 96376; J0171; J0282; J1644; J2001; J2997